=== PATIENT | female | born 1975 | race Caucasian/White ===

== ENCOUNTER 2016-07-08 08:28 | Emergency (ER) ==
[2016-07-08 08:28] VITALS: BMI 21.9
[2016-07-08 08:33] VITALS: BP 124/82; TEMP 98.5
[2016-07-08] MEDS ORDERED: TORADOL IM STA (08:42)
[2016-07-08] MEDS ORDERED: ZOFRAN 4 MG/2 ML IM STA (08:42)
[2016-07-08] MEDS ORDERED: MORPHINE 4 MG/ML SYRINGE IM STA (08:42)
--- NOTE | 2016-07-08 08:45 | ED.PDOC ---
General ED Provider: Dr. LAVINIA ARZOLA Chief Complaint: Kidney Stone Stated Complaint: kidney stone Time Seen by Physician: 08:43 Mode of Arrival: Walk-In Information Source: Patient Exam Limitations: No limitations Primary Care Provider: DIVINE RING Nursing and Triage Documentation Reviewed and Agree: No Review of Systems - Review Of Systems Constitutional: Reports: No symptoms Eyes: Reports: No symptoms Ears, Nose, Mouth, Throat: Reports: No symptoms Respiratory: Reports: No symptoms Cardiac: Reports: No symptoms GI: Reports: No symptoms : Reports: Dysuria, Flank pain (right) Musculoskeletal: Reports: Back pain Skin: Reports: No symptoms Neurological: Reports: No symptoms Endocrine: Reports: No symptoms Hematologic/Lymphatic: Reports: No symptoms All Other Systems: Reviewed and Negative Past Medical History - Past Medical History Previously Healthy: Yes Endocrine: Reports: None Cardiovascular: Reports: None Respiratory: Reports: None Hematological: Reports: None Gastrointestinal: Reports: None Genitourinary: Reports: Kidney stones Neuro/Psych: Reports: None Musculoskeletal: Reports: None Cancer: Reports: None Last Menstrual Period: NA - Surgical History General Surgical History: Reports: None - Family History Family History: Reports: None - Social History Smoking Status: Never smoker Hx Substance Use: No Alcohol Screening: None Physical Exam - Physical Exam Appearance: Well-appearing, No pain distress, Well-nourished Eyes: ROCHELLE, EOMI, Conjunctiva clear ENT: Ears normal, Nose normal, Oropharynx normal Respiratory: Airway patent, Breath sounds clear, Breath sounds equal, Respirations nonlabored Cardiovascular: RRR, Pulses normal, No rub, No murmur GI/: Soft, Nontender, No masses, Bowel sounds normal, No Organomegaly Musculoskeletal: Normal strength, ROM intact, No edema, No calf tenderness Skin: Warm, Dry, Normal color Neurological: Sensation intact, Motor intact, Reflexes intact, Cranial nerves intact, Alert, Oriented Psychiatric: Affect appropriate, Mood appropriate Physician Notification - Case Discussed Physician Notified: latha Time of Notification: 13:25 (stated may go home imaging report entirely was relayed to urologist stated have pt follow up as out pt) Critical Care Note - Critical Care Note Total Time (mins): 0 Course - Course Hematology/Chemistry: 07/08/16 09:00 07/08/16 09:00 Orders, Labs, Meds: Lab Review 07/08/16 07/08/16 09:00 09:30 WBC 10.89 H RBC 3.80 L Hgb 12.0 Hct 36.2 L MCV 95.3 MCH 31.6 H MCHC 33.1 RDW Coeff of Viviane 11.7 Plt Count 224 Immature Gran % (Auto) 0.4 Neut % (Auto) 85.6 Lymph % (Auto) 6.3 L Dougherty % (Auto) 7.3 Eos % (Auto) 0.2 Baso % (Auto) 0.2 Immature Gran # (Auto) 0.0 Neut # 9.3 H Lymph # 0.7 Dougherty # 0.8 Eos # 0.0 Baso # 0.0 Sodium 140 Potassium 4.3 Chloride 106 Carbon Dioxide 27 Anion Gap 11.3 BUN 12 Creatinine 1.02 Estimated GFR (MDRD) 59.00 BUN/Creatinine Ratio 11.76 Glucose 139 H Calcium 8.8 Total Bilirubin 0.37 AST 18 ALT 21 Alkaline Phosphatase 63 Total Protein 6.9 Albumin 3.9 Globulin 3.0 Albumin/Globulin Ratio 1.30 Urine Color Yellow Urine Clarity Slightly Urine pH 6.5 Ur Specific [place] 1.025 Urine Protein Negative Urine Glucose (UA) Negative Urine Ketones Negative Urine Blood 1+ Urine Nitrite Negative Urine Bilirubin Negative Urine Urobilinogen 0.2 Ur Leukocyte Esterase Trace Urine Microscopic RBC 5-10 Urine Microscopic WBC 2-5 Ur Squamous Epith Cells 30-50 Amorphous Sediment Trace Urine Bacteria Trace Urine Mucus 1+ Orders Category Date Time Status CBC W/ AUTO DIFF Stat LAB 07/08/16 09:00 Completed COMPREHENSIVE METABOLIC PANEL Stat LAB 07/08/16 09:00 Completed URINALYSIS C & S IF INDICATED Stat LAB 07/08/16 09:30 Completed Ketorolac Tromethamine [Toradol] MEDS 07/08/16 08:42 Discontinued 30 mg IM ONCE STA Ketorolac Tromethamine [Toradol] MEDS 07/08/16 08:56 Discontinued 30 mg IVP ONCE STA Morphine Sulfate [Morphine 4 mg/ml Syringe] MEDS 07/08/16 08:42 Discontinued 4 mg IM ONCE STA Morphine Sulfate [Morphine 4 mg/ml Syringe] MEDS 07/08/16 08:56 Discontinued 4 mg IVP ONCE STA Ondansetron HCl/Pf [Zofran 4 mg/2 ml] MEDS 07/08/16 08:42 Discontinued 4 mg IM ONCE STA Ondansetron HCl/Pf [Zofran 4 mg/2 ml] MEDS 07/08/16 08:56 Discontinued 4 mg IVP ONCE STA CT ABDOMEN/PELVIS WO CONTRAST Stat RADS 07/08/16 08:41 Completed Medications Discontinued Medications Generic Name Dose Route Start Last Admin Trade Name Freq PRN Reason Stop Dose Admin Ketorolac Tromethamine 30 mg 07/08/16 08:42 Toradol IM 07/08/16 08:43 ONCE STA Ketorolac Tromethamine 30 mg 07/08/16 08:56 07/08/16 09:21 Toradol IVP 07/08/16 08:57 30 mg ONCE STA Administration Morphine Sulfate 4 mg 07/08/16 08:42 Morphine 4 Mg/Ml Syringe IM 07/08/16 08:43 ONCE STA Morphine Sulfate 4 mg 07/08/16 08:56 07/08/16 09:22 Morphine 4 Mg/Ml Syringe IVP 07/08/16 08:57 4 mg ONCE STA Administration Ondansetron HCl 4 mg 07/08/16 08:42 Zofran 4 Mg/2 Ml IM 07/08/16 08:43 ONCE STA Ondansetron HCl 4 mg 07/08/16 08:56 07/08/16 09:19 Zofran 4 Mg/2 Ml IVP 07/08/16 08:57 4 mg ONCE STA Administration Vital Signs: Temp Pulse Resp BP Pulse Ox 07/08/16 08:30 98.5 F 82 16 124/82 96 Departure - Departure Time of Disposition: 13:25 Disposition: HOME SELF-CARE Discharge Problem: Kidney stone Instructions: Kidney Stones (ED), Renal Colic (ED) Condition: Good Pt referred to PMD for follow-up: No Allergies/Adverse Reactions: Allergies No Known Allergies Allergy (Verified 07/08/16 08:29) Home Medications: Ambulatory Orders Atenolol 12.5 mg PO DAILY 07/09/13 Hydrocodone Bit/Acetaminophen [[place] 7.5-325] 1 each PO Q4HR PRN 07/08/16 Ondansetron HCl [Zofran] 4 mg PO Q4-6H PRN 07/08/16 Tamsulosin HCl [Flomax] 0.4 mg PO DAILY 07/08/16 Tramadol HCl [Ultram] 50 mg PO Q6H PRN 07/08/16
[2016-07-08] MEDS ORDERED: ZOFRAN 4 MG/2 ML IVP STA (08:56)
[2016-07-08] MEDS ORDERED: MORPHINE 4 MG/ML SYRINGE IVP STA (08:56)
[2016-07-08] MEDS ORDERED: TORADOL IVP STA (08:56)
[2016-07-08 09:08] LABS: BASOPHILS % (AUTO) 0.2 % (0.0-3.0); EOSINOPHILS % (AUTO) 0.2 % (0.0-7.0); HEMATOCRIT 36.2 % (37.0-47.0); IMMATURE GRANULOCYTE % (AUTO) 0.4 % (0.0-5.0); LYMPHOCYTES # (AUTO) 0.7 K/uL (0.60-3.4); LYMPHOCYTES % (AUTO) 6.3 (10.0-50.0); MEAN CORPUSCULAR HEMOGLOBIN 31.6 pg (27.0-31.0); MEAN CORPUSCULAR HGB CONC 33.1 (31.8-35.4); MEAN CORPUSCULAR VOLUME 95.3 fl (81.0-99.0); MONOCYTES # (AUTO) 0.8 K/uL (0.4-2.0); MONOCYTES % (AUTO) 7.3 (0-10); NEUTROPHILS # (AUTO) 9.3 K/ul (2.0-6.9); NEUTROPHILS % (AUTO) 85.6; PLATELET COUNT 224 10^3/uL (140-440); WHITE BLOOD COUNT 10.89 K/ul (4.6-10.2)
[2016-07-08 09:28] LABS: ALBUMIN 3.9 g/dL (3.4-5.0); ALBUMIN/GLOBULIN RATIO 1.3; ANION GAP 11.3; BILIRUBIN,TOTAL 0.37 mg/dL (0.00-1.20); BUN/CREATININE RATIO 11.76; CALCIUM 8.8 mg/dL (8.2-10.2); CREATININE 1.02 mg/dL (0.60-1.30); POTASSIUM 4.3 mmol/L (3.5-5.10); TOTAL PROTEIN 6.9 g/dL (6.4-8.2)
--- NOTE | 2016-07-08 09:32 | CT ---
EXAM: CT scan of the abdomen and pelvis without contrast HISTORY: Flank pain. History of stones TECHNIQUE: Imaging of the abdomen and pelvis was performed without contrast. 3 mm thin axial image s and coronal and sagittal reconstructions were provided for interpretation. Comparison 06/15/2016 CT scan of the abdomen and pelvis. FINDINGS: There is a calculus again seen within the proximal right ureter, located at the ureteral pelvic junction. The lesion measures approximately 3.5 mm x 2 mm in the axial plane. There is at l east moderate dilatation of the calyces of the right kidney and right renal pelvis. Small nonobstru cting calculi are seen within the calyces of the kidneys bilaterally. The small and large bowel loo ps are normal caliber. There is no free air. No acute abnormalities are seen within the anterior ab dominal wall. The appendix appears normal. The helical images obtained through the pelvis demonstrate an appearance of the rectum, urinary blad candy. There is no free fluid seen within the pelvis. Lung bases are clear. No lytic or blastic les ions are seen within the osseous structures. IMPRESSION: There is stable appearance of a proximal right ureteral calculus located at the uretera l pelvic junction measuring 3.5 mm x 2 mm causing moderate hydronephrosis of the right kidney. Nonobstructing nephrolithiasis seen within the kidneys bilaterally. No evidence for bowel obstruction.
[2016-07-08 09:36] LABS: BILIRUBIN,URINE Negative (NEGATIVE); KETONES,URINE Negative (NEGATIVE); LEUKOCYTE ESTERASE ,URINE Trace (NEGATIVE); NITRITE,URINE Negative (NEGATIVE); PH,URINE 6.5 (5-9); PROTEIN,URINE Negative (NEGATIVE); URINE, BLOOD 1+ (NEGATIVE)
[2016-07-08 09:38] LABS: ADD URINE MICROSCOPIC YES; BACTERIA,URINE TRACE (NOT PRESENT)
== END 2016-07-08 13:50 | disposition home or self-care (01) ==
LOC: ED 08:28
DX: N20.0 Calculus of kidney (principal); Z87.442 Personal history of urinary calculi
CPT/HCPCS: 36415; 80053; 81001; 85025; 96374; 96375; 99283

== ENCOUNTER 2016-08-03 12:59 | Outpatient (CLI) ==
[2016-08-03 15:12] VITALS: BMI 21.2
== END 2016-08-03 13:00 | disposition home or self-care (01) ==
LOC: DIETCN 12:59
PROVIDERS: ATTEND Internal Medicine
DX: Z87.442 Personal history of urinary calculi (principal)
CPT/HCPCS: 97802

== ENCOUNTER 2017-02-01 10:55 | Outpatient (CLI) ==
[2017-02-01 11:14] LABS: BASOPHILS % (AUTO) 0.5 % (0.0-3.0); EOSINOPHILS # (AUTO) 0.2 K/ul (0.0-0.7); EOSINOPHILS % (AUTO) 4.5 % (0.0-7.0); HEMATOCRIT 35.3 % (37.0-47.0); HEMOGLOBIN 12.4 g/dl (12.0-16.0); IMMATURE GRANULOCYTE % (AUTO) 0.2 % (0.0-5.0); LYMPHOCYTES # (AUTO) 1.8 K/uL (0.60-3.4); LYMPHOCYTES % (AUTO) 40.6 (10.0-50.0); MEAN CORPUSCULAR HEMOGLOBIN 32.2 pg (27.0-31.0); MEAN CORPUSCULAR HGB CONC 35.1 (31.8-35.4); MEAN CORPUSCULAR VOLUME 91.7 fl (81.0-99.0); MONOCYTES # (AUTO) 0.6 K/uL (0.4-2.0); MONOCYTES % (AUTO) 13.8 (0-10); NEUTROPHILS # (AUTO) 1.8 K/ul (2.0-6.9); NEUTROPHILS % (AUTO) 40.4; PLATELET COUNT 245 10^3/uL (140-440); RED BLOOD COUNT 3.85 10^6/ul (4.20-5.40); WHITE BLOOD COUNT 4.43 K/ul (4.6-10.2)
[2017-02-01 11:54] LABS: ALBUMIN 3.8 g/dL (3.4-5.0); ALBUMIN/GLOBULIN RATIO 1.09; BILIRUBIN,TOTAL 0.31 mg/dL (0.00-1.20); BUN/CREATININE RATIO 15.18; CALCIUM 9.2 mg/dL (8.2-10.2); CHOL/HDL RATIO 3.1 (4.5-5.5); CREATININE 0.79 mg/dL (0.60-1.30); TOTAL PROTEIN 7.3 g/dL (6.4-8.2)
== END 2017-02-01 10:56 | disposition home or self-care (01) ==
LOC: LAB 10:55
PROVIDERS: ATTEND Internal Medicine
DX: E78.5 Hyperlipidemia, unspecified (principal); I10 Essential (primary) hypertension
CPT/HCPCS: 36415; 80053; 80061; 82607; 83036; 84443; 85025

== ENCOUNTER 2017-09-01 11:25 | Outpatient (CLI) | END 2017-09-01 11:26 | disposition home or self-care (01) | LOC: LAB 11:25 | PROVIDERS: ATTEND Internal Medicine | DX: E78.5 Hyperlipidemia, unspecified (principal); I10 Essential (primary) hypertension; I34.1 Nonrheumatic mitral (valve) prolapse | CPT/HCPCS: 36415; 80053; 80061; 82306; 82607; 83036; 84443; 85025 ==

== ENCOUNTER 2018-01-06 09:57 | Outpatient (CLI) ==
--- NOTE | 2018-01-06 11:00 | MAMMO ---
EXAM: Bilateral digital screening mammogram (2-D and 3-D) History: Screening Comparison: Bilateral mammogram 11/16/2016 Findings: MLO and CC views of bilateral breasts demonstrate heterogeneously dense breast parenchyma which can obscure small lesions. There are no dominant masses, no suspicious microcalcifications and no architectural distortions. CAD was reviewed by the radiologist. Tomosynthesis was performed. Impression: Stable negative mammogram. Recommend followup routine screening mammography in 1 year. BIRADS 1
== END 2018-01-06 09:58 | disposition home or self-care (01) ==
LOC: RAD 09:57
PROVIDERS: ATTEND Nurse Practitioner Family
DX: Z12.31 Encounter for screening mammogram for malignant neoplasm of breast (principal)
CPT/HCPCS: 77067

== ENCOUNTER 2018-03-31 10:36 | Outpatient (CLI) | payer BC, OTHER | END 2018-03-31 10:37 | disposition home or self-care (01) | LOC: RHC-LAB 10:36 | PROVIDERS: ATTEND Nurse Practitioner Family | DX: R80.9 Proteinuria, unspecified (principal); R81 Glycosuria; R30.9 Painful micturition, unspecified | CPT/HCPCS: 81001 ==